=== PATIENT | male | born 1980 | race Two or more races ===

== ENCOUNTER 2018-05-07 11:53 | Emergency (ER) | payer OTHER, BC ==
--- NOTE | 2018-05-07 12:57 | ER Document Report ---
ED Extremity Problem, Upper - General Chief Complaint: Shoulder Injury Stated Complaint: SHOULDER PAIN Time Seen by Provider: 05/07/18 12:28 Mode of Arrival: Ambulatory Information source: Patient Notes: 37-year-old male presented to ED for complaint of left upper back pain across the left shoulder with numbness and tingling to the left hand. Patient states that 2 weeks ago when he was holding his child he felt severe numbness to the arm and hand. He went to the PCP on 1211 and had x-rays done and was told that there was likely a pinched nerve. He states the primary care doctor Dusty send him home with a prescription for tramadol and muscle relaxers which gave him no relief. He states he went back to the primary care and they gave him prescription for oxycodone and prednisone. States that Dr. Montano wanted him to do MRI and follow-up with orthopedics but his insurance would not approve a MRI without him having an extended period of therapy and meds. Patient states Dr. Montano would not refill his prednisone and oxycodone. States he went to the [place] doctor and they told him it would be at least June before they could see him. TRAVEL OUTSIDE OF THE [place] IN LAST 30 DAYS: No - HPI Patient complains to provider of: Pain, Left - Upper back shoulder and down his left arm Onset: Other - 04/27/2018 Recent injury: No Quality of pain: Sharp - Sharp pain with numbness and tingling down the left arm to the hand Severity of pain: Moderate, Intermittent Pain Level: 4 Associated symptoms: Numbness - down left arm, Tingling - Down left arm Exacerbated by: Movement, Exertion Relieved by: Nothing Similar symptoms previously: Yes Recently seen / treated by doctor: Yes - Related Data Allergies/Adverse Reactions: No Known Allergies Allergy (Unverified 05/07/18 12:36) Past Medical History - General Information source: Patient - Social History Smoking Status: Former Smoker Frequency of alcohol use: biweekly Drug Abuse: None Lives with: Family Family History: Reviewed & Not Pertinent Patient has suicidal ideation: No Patient has homicidal ideation: No - Past Medical History Cardiac Medical History: Reports: None Pulmonary Medical History: Reports: None EENT Medical History: Reports: None Neurological Medical History: Reports: None Endocrine Medical History: Reports: None Renal/ Medical History: Reports: None Malignancy Medical History: Reports None GI Medical History: Reports: None Musculoskeletal Medical History: Reports Hx Musculoskeletal Deformity, Reports Hx Musculoskeletal Trauma Skin Medical History: Reports None Psychiatric Medical History: Reports: Hx Post Traumatic Stress Disorder Traumatic Medical History: Reports: Hx Fractures - Skull fracture, Hx Traumatic Brain Injury, Other - She states he had neck and low back injuries in the Infectious Medical History: Reports: None Surgical Hx: Negative Past Surgical History: Reports: None - Immunizations Immunizations up to date: Yes Hx Diphtheria, Pertussis, Tetanus Vaccination: Yes Review of Systems - Review of Systems Constitutional: No symptoms reported EENT: No symptoms reported Cardiovascular: No symptoms reported Respiratory: No symptoms reported Gastrointestinal: No symptoms reported Genitourinary: No symptoms reported Male Genitourinary: No symptoms reported Musculoskeletal: Back pain - Pain to the cervical spine across the left shoulder with numbness and tingling down the left arm decreased strength to the left arm Skin: No symptoms reported Hematologic/Lymphatic: No symptoms reported Neurological/Psychological: No symptoms reported -: Yes All other systems reviewed and negative Physical Exam - Vital signs Vitals: Temp Pulse Resp BP Pulse Ox 97.9 F 85 16 137/90 H 95 05/07/18 12:03 05/07/18 12:03 05/07/18 12:03 05/07/18 12:03 05/07/18 12:03 Interpretation: Normal - General General appearance: Appears well, Alert - HEENT Head: Normocephalic, Atraumatic Eyes: Normal Pupils: PERRL - Respiratory Respiratory status: No respiratory distress Chest status: Nontender Breath sounds: Normal Chest palpation: Normal - Cardiovascular Rhythm: Regular Heart sounds: Normal auscultation Murmur: No - Abdominal Inspection: Normal Distension: No distension Bowel sounds: Normal Tenderness: Nontender Organomegaly: No organomegaly - Back Back: Tender, Vertebra tenderness - cervical. No: Deformity/step-off, CVA tenderness, Scars, Scoliosis, Wounds - Extremities General upper extremity: Normal inspection, Nontender, Normal color, Normal ROM, Normal temperature General lower extremity: Normal inspection, Nontender, Normal color, Normal ROM, Normal temperature, Normal weight bearing. No: Lobo's sign Shoulder: Other - Neurological Neuro grossly intact: Yes Cognition: Normal Orientation: AAOx4 Pigeon Coma Scale Eye Opening: Spontaneous Pigeon Coma Scale Verbal: Oriented Pigeon Coma Scale Motor: Obeys Commands Jeremy Coma Scale Total: 15 Speech: Normal Motor strength normal: LUE, RUE, LLE, RLE Sensory: Normal - Psychological Associated symptoms: Normal affect, Normal mood - Skin Skin Temperature: Warm Skin Moisture: Dry Skin Color: Normal Course - Re-evaluation Re-evalutation: 05/07/18 16:[address] Streeter concerning this patient's CT results. The patient was taken to the [facility] area and Dr. Krishnan discussed different treatment plans and therapies that the patient could use for his pain and numbness to his arm. Patient was then discharged home. He did make an appointment with a pathology specialist to be seen. Patient was discharged home with prescription for prednisone. - Vital Signs Vital signs: Temp Pulse Resp BP Pulse Ox 98.0 F 69 13 141/90 H 97 05/07/18 14:00 05/07/18 14:00 05/07/18 14:00 05/07/18 14:00 05/07/18 14:00 - Diagnostic Test Radiology reviewed: Image reviewed, Reports reviewed Discharge - Discharge Clinical Impression: Degenerative disc disease, cervical, Foraminal stenosis of cervical region Condition: Stable Disposition: HOME, SELF-CARE Additional Instructions: You were seen today for pain to the neck radiating down the left arm with numbness and tingling to the left hand. Your x-rays have been discussed with you as well as the CT of your neck. A written report of CT and x-ray as well as a CD of the radiological exams given to patient to follow-up with a back specialist that you are getting scheduled to follow-up with. STEROID MEDICATION: You have been given a medicine of the cortisone/steroid class. This medication is used to control inflammation or allergy. It is usually only given for a short period of time, until the acute process subsides. There are usually no side effects from short-term use of cortisone-like medications. Some persons feel an increased sense of well-being and are not sleepy at bedtime. Long-term use of cortisone medications is best avoided, unless required for a severe condition. If your condition does not remit, or relapses after the course of corticosteroid medication, you should consult your physician. FOLLOW-UP CARE: If you have been referred to a physician for follow-up care, call the physicians office for an appointment as you were instructed or within the next two days. If you experience worsening or a significant change in your symptoms, notify the physician immediately or return to the Emergency Department at any time for re-evaluation. Prescriptions: Prednisone [Deltasone 20 mg Tablet] 3 tab PO DAILY 5 Days tablet Forms: Elevated Blood Pressure Referrals: [facility] [[facility]] - Follow up as needed
--- NOTE | 2018-05-07 13:17 | RADIOLOGY REPORT (SQ) ---
EXAM DESCRIPTION: CT CERVICAL SPINE WITHOUT COMPLETED DATE/TIME: 05/07/2018 1:05 pm REASON FOR STUDY: pain neck aross left shoulder and down arm COMPARISON: None. TECHNIQUE: Axial images acquired through the cervical spine without intravenous contrast. Images re viewed with lung, soft tissue and bone windows. Reconstructed coronal and sagittal MPR images review ed. Images stored on PACS. All CT scanners at this facility use dose modulation, iterative reconstruction, and/or weight based d osing when appropriate to reduce radiation dose to as low as reasonably achievable (ALARA). [facility]: Dose Right [facility]: CareDose [facility]: Dose Right [facility]: Teradose 4D [facility]: [employer] RADIATION DOSE: CT Rad equipment meets quality standard of care and radiation dose reduction techniq ues were employed. CTDIvol: 20.3 mGy. DLP: 496 mGy-cm. mGy. LIMITATIONS: None. FINDINGS: ALIGNMENT: Anatomic. MINERALIZATION: Normal. VERTEBRAL BODIES: No fractures or dislocation. DISCS: There is focal moderate disc degenerative disease of C5 through C7 with large left uncovertebr al disc osteophytes at these levels. FACETS, LATERAL MASSES, POSTERIOR ELEMENTS: There is asymmetrically severe facet degenerative diseas e on the left at C3-C4 and C4-C5 with resultant bony neural foraminal narrowing. No fractures. No d islocation. No acute findings. HARDWARE: None in the spine. VISUALIZED RIBS: No fractures. LUNG APICES AND SOFT TISSUES: No significant or acute findings. OTHER: No other significant finding. IMPRESSION: Asymmetrically severe disc and facet degenerative disease on the left as detailed above. There is asymmetric, severe facet degenerative disease on the left at C3-C4 and C4-C5 with resultan t bony neural foraminal narrowing, and focal disc degenerative disease and uncovertebral osteophytosi s on the left at C5-C6 and C6-C7, likewise resulting in bony neural foraminal stenosis. MRI may be u sed to further evaluate cervical canal and neural foraminal pathology if desired. TECHNICAL DOCUMENTATION: JOB ID: [id number] Quality ID # [id number]: Final reports with documentation of one or more dose reduction techniques (e.g., Au tomated exposure control, adjustment of the mA and/or kV according to patient size, use of iterative reconstruction technique) 2010 [employer]- All Rights Reserved Reading location - IP/workstation name: [email or web address]
--- NOTE | 2018-05-07 13:43 | RADIOLOGY REPORT (SQ) ---
EXAM DESCRIPTION: SHOULDER LEFT 2 OR MORE VIEWS COMPLETED DATE/TIME: 05/07/2018 1:18 pm REASON FOR STUDY: pain neck aross left shoulder and down arm , fall injury pain COMPARISON: None. NUMBER OF VIEWS: Three views. TECHNIQUE: Internal rotation, external rotation, and trans axillary images acquired of the left shou lder. LIMITATIONS: None. FINDINGS: MINERALIZATION: Normal. BONES: No acute fracture or dislocation. No worrisome bone lesions. JOINTS: No glenohumeral dislocation. No widening at the AC joint VISUALIZED LUNGS AND RIBS: No pneumothorax. No rib fracture. SOFT TISSUES: No radiopaque foreign body. OTHER: No other significant finding. IMPRESSION: NEGATIVE STUDY OF THE LEFT SHOULDER. NO RADIOGRAPHIC EVIDENCE OF ACUTE INJURY. TECHNICAL DOCUMENTATION: JOB ID: [id number] [employer]- All Rights Reserved Reading location - IP/workstation name: [email or web address]
[2018-05-07 14:02] VITALS: BP 141/90
== END 2018-05-07 14:16 | disposition home or self-care (01) ==
LOC: ER 11:53
DX: M48.02 Spinal stenosis, cervical region (principal); M50.30 Other cervical disc degeneration, unspecified cervical region; R20.0 Anesthesia of skin; Z79.899 Other long term (current) drug therapy; Z87.891 Personal history of nicotine dependence
CPT/HCPCS: 72125; 99284